=== PATIENT | female | born 1990 | race Two or more races ===

== ENCOUNTER 2023-01-28 21:10 | Emergency (ER) | payer OTHER ==
[~2023-01-28] VITALS: Ht 157.5 cm; Wt 51.3 kg
[2023-01-28] MEDS ORDERED: TDAP [DIPH/PERTUSSIS/TET] 0.5 ML VIAL IM ONE ×2 (22:00→22:40)
[2023-01-28] MEDS ORDERED: LIDOCAINE 1% INJ 50 ML MDV IJ ONE (22:00)
[2023-01-28 22:14] VITALS: BP 111/68; TEMP 98.4; O2SAT 99
[2023-01-28] MEDS ORDERED: LIDOCAINE 2% 20 ML MDV ONE (22:31)
== END 2023-01-28 23:53 | disposition home or self-care (01) ==
LOC: ER 21:25 → EDBD 21:25 → ER 23:53
DX: S61.211A Laceration without foreign body of left index finger without damage to nail, initial encounter (principal); Z60.2 Problems related to living alone; W26.0XXA Contact with knife, initial encounter; Y93.89 Activity, other specified; Y92.89 Other specified places as the place of occurrence of the external cause; Y99.8 Other external cause status
CPT/HCPCS: 12001; 90471; 90715; 99283; A6403; J3490